=== PATIENT | male | born 1980 | race Caucasian/White ===

== ENCOUNTER 2020-11-03 18:08 | Emergency (ER) | payer BC ==
[~2020-11-03] VITALS: Ht 177.8 cm; Wt 74.8 kg
[2020-11-03 18:11] VITALS: BP_SYST 116
--- NOTE | 2020-11-03 18:15 | NUR ---
Placed in room 3 . Placed on child monitor, blood pressure machine and pulse oximeter. To gown for exam. Side rails up. Report given to APOORVA Powell.
--- NOTE | 2020-11-03 18:20 | NUR ---
Pt brought by self, ambulatory, pt presents to ER with SOB , states symptoms started after covid pfeizer vaccine giving last sunday , skin pink and warm, cap refill <3, VSS.
--- NOTE | 2020-11-03 18:30 | NUR ---
Dr Granger evaluating patient at bedside
[2020-11-03] MEDS ORDERED: IBUP-1969 PO (18:57)
--- NOTE | 2020-11-03 19:09 | NUR ---
Received report from Sherry GUERIN. Patient resting quietly. No acute distress noted. Vital signs within normal range.
[2020-11-03 19:15] VITALS: BP_SYST 116
--- NOTE | 2020-11-03 19:15 | NUR ---
Patient given written and verbal discharge instructions and verbalizes understanding. ER MD discussed with patient the results and treatment provided. Patient in stable condition. ID arm band removed. Rx of MOTRIN given. Patient educated on pain management and to follow up with PMD. Opportunity for questions provided and answered. Medication side effect fact sheet provided.
== END 2020-11-03 19:15 | disposition home or self-care (01) ==
LOC: SED 18:08
DX: S29.011A Strain of muscle and tendon of front wall of thorax, initial encounter (principal); R06.02 Shortness of breath; X50.9XXA Other and unspecified overexertion or strenuous movements or postures, initial encounter; Y93.89 Activity, other specified; Y92.89 Other specified places as the place of occurrence of the external cause; Y99.8 Other external cause status
CPT/HCPCS: 71045; 93005; 99283

== ENCOUNTER 2023-05-19 15:46 | Emergency (ER) | payer BC ==
[~2023-05-19] VITALS: Ht 180.3 cm; Wt 74.8 kg
[~2023-05-19 15:46] MED LIST: IBUP-1969 PO
[2023-05-19 15:50] VITALS: BP_SYST 150; PULSE 72; RESP 19; TEMP 97.5; O2SAT 96
[2023-05-19] MEDS ORDERED: LIDOCAINE 1% 10 MG/ML, 20 ML MDV INJ ONE (18:30)
[2023-05-19] MEDS ORDERED: BACI15OI13 TP (19:27)
[2023-05-19 19:44] VITALS: O2SAT 98
[2023-05-19 19:45] VITALS: BP_SYST 114; PULSE 65; RESP 16; TEMP 97.9
== END 2023-05-19 19:42 | disposition home or self-care (01) ==
LOC: SED 15:46
DX: R22.32 Localized swelling, mass and lump, left upper limb (principal); Z79.899 Other long term (current) drug therapy
CPT/HCPCS: 99284; 10060; J2001